=== PATIENT | female | born 1970 | race Caucasian/White ===

== ENCOUNTER 2019-09-07 19:52 | Emergency (ER) | payer BC ==
[2019-09-07 20:53] VITALS: BP 115/70; PULSE 93
[2019-09-07] MEDS ORDERED: Acetaminophen/HYDROcodone 325-5 MG Tab PO ONE (21:15)
[2019-09-07] MEDS ORDERED: Silver Sulfadiazine 1% Crm 50 GM Tube TOP ONE (21:15)
[2019-09-07] MEDS ORDERED: Diphtheria,Pertussis(Acell),Tetanus Vaccine 0.5 ML SDV IM ONE (21:16)
--- NOTE | 2019-09-07 21:25 | EDM.PDOC ---
ED HPI GENERAL MEDICAL PROBLEM - General Chief Complaint: Burn Stated Complaint: L FOREARM GREASE BURN Time Seen by Provider: 09/07/19 19:58 Source of Information: Reports: Patient History Limitations: Reports: No Limitations - History of Present Illness INITIAL COMMENTS - FREE TEXT/NARRATIVE: chief complaint: left wrist and hand burn This is a 48 year old female present to the ER with concerns of burn to the left wrist and thumb. she was cooking herrera in the oven, was removing the herrera sheet from the oven and it splashed on her wrist and thumb. immediately applied cool w ater. couldn't stand the pain any longer and came to the ER. injury happened 2 hours prior to arrival. Onset: Today Onset Date: 09/07/19 Onset Time: 19:00 Duration: Hour(s): Location: Reports: Upper Extremity, Left (left wrist and anterior thumb) Quality: Reports: Burning, Sharp Improves with: Reports: Cold Therapy Worsens with: Reports: None Context: Reports: Other (herrera grease splashed on the left wrist and left thumb) Associated Symptoms: Reports: No Other Symptoms Treatments [employer]: Reports: Cold Therapy Left Anterior Wrist Pain Score (Numeric/FACES): 9 - Related Data Allergies Allergy/AdvReac Type Severity Reaction Status Date / Time acetaminophen [From Midol] Allergy Hives Verified 06/23/14 17:14 naproxen sodium [From Aleve] Allergy Hives Verified 06/23/14 17:14 pamabrom [From Midol] Allergy Hives Verified 06/23/14 17:14 Home Meds: Home Meds Hydroxychloroquine Sulfate [Plaquenil] 200 mg PO DAILY 09/07/19 [History] traZODone 150 mg PO BEDTIME 09/07/19 [History] Past Medical History [employer] History: Reports: Psychiatric History: Reports: Depression - Past Surgical History GI Surgical History: Reports: Cholecystectomy, Other (See Below) Other GI Surgeries/Procedures: post op bile leak Social & Family History - Tobacco Use Smoking Status *Q: Current Every Day Smoker Years of Tobacco use: 20 Packs/Tins Daily: 0.5 - Caffeine Use Caffeine Use: Reports: Coffee - Alcohol Use Days Per Week of Alcohol Use: 7 Number of Drinks Per Day: 2 Total Drinks Per Week: 14 - Recreational Drug Use Recreational Drug Use: No ED ROS GENERAL - Review of Systems Review Of Systems: See Below Constitutional: Reports: Other (uncontrolled pain in left wrist and thumb from burn ) HEENT: Reports: No Symptoms Skin: Reports: Burn(s) (left wrist and left thumb) Hematologic/Lymphatic: Reports: No Symptoms Immunologic: Reports: No Symptoms ED EXAM, GENERAL - Physical Exam Exam: See Below Exam Limited By: No Limitations General Appearance: Alert, WD/WN, Moderate Distress Head: Atraumatic, Normocephalic Neck: Supple Respiratory/Chest: No Respiratory Distress Extremities: Normal Range of Motion, Normal Capillary Refill, Other (left wrist and left thumb with first degree burn. no blisters are noted. pain. burn is from mid thumb to 2 cm past the wrist. does not rincon the whole thumb or wrist. ) Neurological: Alert, Oriented, Normal Cognition, Normal Gait Psychiatric: Tearful Skin Exam: Other (first degree burn to left wrist and left thumb) Lymphatic: No Adenopathy Course - Vital Signs Last Recorded V/S: Last Vital Signs Temp 37.2 C 09/07/19 20:51 Pulse 93 09/07/19 20:51 Resp 20 09/07/19 20:51 BP 115/70 09/07/19 20:51 Pulse Ox 97 09/07/19 20:51 - Orders/Labs/Meds Orders: Active Orders 24 hr Category Date Time Status Vaccines to be Administered [RC] PER UNIT ROUTINE Care 09/07/19 21:16 Active Meds: Medications Discontinued Medications Generic Name Dose Route Start Last Admin Trade Name Freq PRN Reason Stop Dose Admin Hydrocodone Bitart/Acetaminophen 1 tab 09/07/19 21:15 09/07/19 21:25 Atkinson 325-5 Mg PO 09/07/19 21:16 1 tab ONETIME ONE Administration Diphtheria/Tetanus/Acell Pertussis 0.5 ml 09/07/19 21:16 09/07/19 21:27 Adacel IM 09/07/19 21:17 0.5 ml .ONCE ONE Administration Silver Sulfadiazine 0 gm 09/07/19 21:15 Silvadene 1% Cream 50 Gm TOP 09/07/19 21:16 ONETIME ONE - Re-Assessments/Exams Free Text/Narrative Re-Assessment/Exam: 09/07/19 21:39 -cool with water and compress -burn dressing with Silvadene applied by RN -hydrocodone 5-325 mg one in ER -updated Tdap -advised to remove rings from the fingers in case of swelling from the burn. discussed burn care and follow up -[facility]- Hydrocodone 5-325 mg one every 4 to 6 hours prn #12 and Silvadene creme Mrs. Fuentes agrees with plan of care Departure - Departure Time of Disposition: 21:19 Disposition: Home, Self-Care 01 Condition: Good Clinical Impression: Burn of first degree of wrist and hand Qualifiers: Encounter type: initial encounter Laterality: left Qualified Code(s): T23.172A - Burn of first degree of left wrist, initial encounter - Discharge Information *PRESCRIPTION DRUG MONITORING PROGRAM REVIEWED*: Not Applicable *COPY OF PRESCRIPTION DRUG MONITORING REPORT IN PATIENT RED: Not Applicable Instructions: Burn Care, Adult, [id number] Referrals: Kaitlynn Araujo [employer] [Primary Care Provider] - Forms: ED Department Discharge Care Plan Goals: Burn to wrist and hand -apply burn creme and bandage two times a day for 5 days then daily til healed -Hydrocodone 5-325mg one every 4 to 6 hours as needed for pain #12 -Tdap given in ER -avoid roque water, ponds, hot tub, pools, bathtub until healed. may shower. -will need a burn check in 3 days -monitor for any signs of infection- increased pain, redness, drainage, not improved will need to be seen as soon as possible -return to ER for any signs of infection, not improving or any concerns. Sepsis Event Note (ED) - Evaluation Sepsis Screening Result: No Definite Risk - Focused Exam Vital Signs: Vital Signs Temp Pulse Resp BP Pulse Ox 09/07/19 20:51 37.2 C 93 20 115/70 97 - Problem List & Annotations (1) Burn of first degree of wrist and hand SNOMED Code(s): 596682661 Code(s): T23.179A - BURN OF FIRST DEGREE OF UNSPECIFIED WRIST, INITIAL EN COUNTER; T23.109A - BURN OF FIRST DEGREE OF UNSP HAND, UNSP SITE, INIT ENCNTR Status: Acute Priority: High Current Visit: Yes Qualifiers: Encounter type: initial encounter Laterality: left Qualified Code(s): T23.172A - Burn of first degree of left wrist, initial encounter; T23.102A - Burn of first degree of left hand, unspecified site, initial encounter - Problem List Review Problem List Initiated/Reviewed/Updated: Yes - My Orders Last 24 Hours: My Active Orders 09/07/19 21:16 Vaccines to be Administered [RC] PER UNIT ROUTINE - Assessment/Plan Last 24 Hours: My Active Orders 09/07/19 21:16 Vaccines to be Administered [RC] PER UNIT ROUTINE Plan: Burn to wrist and hand -apply burn creme and bandage two times a day for 5 days then daily til healed -Hydrocodone 5-325mg one every 4 to 6 hours as needed for pain #12 -Tdap given in ER -avoid ro[place] water, ponds, hot tub, pools, bathtub until healed. may shower. -will need a burn check in 3 days -monitor for any signs of infection- increased pain, redness, drainage, not improved will need to be seen as soon as possible -return to ER for any signs of infection, not improving or any concerns.
== END 2019-09-07 21:53 | disposition home or self-care (01) ==
LOC: JP.ED 19:52
DX: T23.172A Burn of first degree of left wrist, initial encounter (principal); T23.112A Burn of first degree of left thumb (nail), initial encounter; F32.9 Major depressive disorder, single episode, unspecified; F17.210 Nicotine dependence, cigarettes, uncomplicated; Z88.6 Allergy status to analgesic agent; Z88.8 Allergy status to other drugs, medicaments and biological substances; Z23 Encounter for immunization; Z79.899 Other long term (current) drug therapy; X19.XXXA Contact with other heat and hot substances, initial encounter
CPT/HCPCS: 16000; 90471; 90715; 99283; A9270